=== PATIENT | female | born 1985 | race American Indian/Alaskan Native ===

== ENCOUNTER 2018-06-16 06:37 | Outpatient (CLI) | payer OTHER ==
[2018-06-16] MEDS ORDERED: LACTATED RINGERS 500 ML IV ONE (07:10)
[2018-06-16 09:45] LABS: Hematocrit 39.1 % (30.3-42.9); Hemoglobin 13.4 gm/dl (10.1-14.3); Mean Corpuscular HGB Conc 34 % (30-34); Mean Corpuscular Hemoglobin 31 pg (28-32); Mean Corpuscular Volume 89 fl (79-97); Platelet Count 246 K/mm3 (140-440); Red Blood Count 4.38 M/mm3 (3.65-5.03)
[2018-06-16 10:25] LABS: Alanine Aminotransferase 222 units/L (7-56); Uric Acid 4.4 mg/dL (3.5-7.6)
--- NOTE | 2018-06-16 10:46 | Ultrasound Report ---
FINAL REPORT EXAM: BIOPHYSICAL PROFILE WO NST HISTORY: ELEVATED BP, PREVIOUS C/S TECHNIQUE: Biophysical profile PRIORS: None currently available. FINDINGS: Single fetus is identified. heart rate: 133 BPM Breathin Gross Body Movements: 2 Tone: 2 Qualitative AFV: 2 IMPRESSION: Biophysical profile score 6/8.
--- NOTE | 2018-06-16 10:51 | Ultrasound Report ---
FINAL REPORT EXAM: OB US > = 14 WKS SNGL FETUS HISTORY: ELEVATED BP, PREVIOUS C/S TECHNIQUE: Transabdominal OB ultrasound. PRIORS: None currently available. FINDINGS: Single intrauterine dates 35.1 weeks. JOHN equals July 20, 2018. This is 4 days older compared to the LMP and is within normal limits. EFW equals 2829 g. Percentile equals 85%. BPD: 33.1 weeks. HC: 34.6 weeks. AC: 37.1 weeks. FL: 35.4 weeks. CI: 76.2 (71-87) HC/AC: 0.94 Presentation: Cephalic. Placenta: Anterior. Grade 0. No previa. heart rate: 132 BPM. Amniotic fluid index: 9.1 cm. Within normal limits. Closed cervix measures 3.7 cm. Visualized cord plexus, cisterna magnum, cerebellum, lateral ventricles, stomach, kidneys, bladder, diaphragm, four-chamber heart, three-vessel cord insertion, and portions of the spine are within normal limits. IMPRESSION: Single live intrauterine .
[2018-06-16] MEDS ORDERED: ZOFRAN IV PRN (10:55)
[2018-06-16] MEDS ORDERED: MAGNESIUM SULFATE 4GM/100ML 4 GM/100 ML BAG IV ONE (10:55)
[2018-06-16] MEDS ORDERED: NORMODYNE IV NR (10:55)
[2018-06-16] MEDS ORDERED: TYLENOL PO PRN (10:55)
[2018-06-16] MEDS ORDERED: COLACE PO PRN (11:00)
[2018-06-16] MEDS ORDERED: MAGNESIUM SULFATE 40GM/1000ML 40 GM/1,000 ML BAG IV SCH (11:00)
--- NOTE | 2018-06-16 11:10 | History and Physical Report ---
History of Present Illness Date of examination: 06/16/18 Chief complaint: Pt complains of elevated BP's History of present illness: Pt is a 32yo BF EDC 07/24/18; EGA 34 4/7 weeks presents to [facility] complaining of elevated BP's. Her BP was 167/94, but she denies headaches, blurred vision or epigatric pains. She was on a flight from [place] and transported to the hospital for evaluation. She has chronic hypertension on Aldomet and Procardia, and had a previous C Section. She also denies contractions, ROM or bleeding. records are not available. Past History Past Surgical History: section Social history: no significant social history, - Obstetrical History Expected Date of Delivery: 07/24/18 Actual Gestation: 34 Week(s) 4 Day(s) : 2 Medications and Allergies Allergies Allergy/AdvReac Type Severity Reaction Status Date / Time No Known Allergies Allergy Verified 06/16/18 07:24 Home Medications Medication Instructions Recorded Confirmed Last Taken Type Methyldopa 250 mg PO BID 06/16/18 06/16/18 06/16/18 05:00 History NIFEdipine [Nifedipine] 20 mg PO BID 06/16/18 06/16/18 06/16/18 05:00 History No Known Home Medications [No 06/16/18 06/16/18 Unknown History Reported Home Medications] Review of Systems All systems: negative - Vital Signs Vital signs: Vital Signs Pulse BP 99 H 148/92 06/16/18 07:21 06/16/18 07:21 Temp Pulse Resp BP Pulse Ox 96 H 164/95 06/16/18 10:43 06/16/18 10:43 - Physical Exam Breasts: Positive: deferred Cardiovascular: Regular rate Lungs: Positive: Clear to auscultation Abdomen: Positive: normal appearance Genitourinary (Female): Positive: normal external genitalia Uterus: Positive: enlarged - Obstetrical FHR: category 1 Uterine Contraction Monitor Mode: External Results Result Diagrams: 06/16/18 09:20 06/16/18 09:20 Abnormal lab results 06/16/18 Range/Units 09:20 Creatinine 0.4 L (0.7-1.2) mg/dL AST 412 H (5-40) units/L ALT 222 H (7-56) units/L Lactate Dehydrogenase 645 H (91-180) units/L All other labs normal. Ultrasound: report reviewed Assessment and Plan - Patient Problems (1) 34 weeks gestation of Onset Date: 06/16/18 Current Visit: Yes Status: Acute Plan to address problem: A: IUP @ 34 4/7 weeks Chronic hypertension with superimposed preeclampsia Previous C Section No care P: Admit to L&D for possible Repeat C Section Begin IV Magnesium sulfate and IV Labetolol [facility] consultation (2) Pre-eclampsia superimposed on chronic hypertension, antepartum Onset Date: 06/16/18 Current Visit: Yes Status: Acute
[2018-06-16] MEDS ORDERED: LACTATED RINGERS 1,000 ML ONE (11:12)
[2018-06-16] MEDS ORDERED: CELESTONE SOLUSPAN IM ONE (11:13)
[2018-06-16 12:14] VITALS: BP 166/87
--- NOTE | 2018-06-16 12:26 | Discharge Summary ---
Providers - Providers Date of discharge: 06/16/18 Attending physician: EDDIE CUNNINGHAM Primary care physician: EDDIE CUNNINGHAM Hospitalization Reason for admission: IUP - , observation, other (Chronic hypertension with superimposed preeclampsia) Discharge diagnosis: other (IUP @ 34 4/7 weeks; Chronic hypertension with superimposed preeclampsia; Previous C Section) Condition at discharge: Stable Disposition: [id number] ANOTHER TYPE HLTHCARE - Discharge Diagnoses (1) 34 weeks gestation of Status: Acute (2) Pre-eclampsia superimposed on chronic hypertension, antepartum Status: Acute Plan - Provider Discharge Summary Activity: routine Diet: other (NPO) Additional instructions: [] Smoking cessation referral if applicable(refer to patient education folder for contact #) [] Refer to [facility]'s [facility] Booklet Call your doctor immediately for: * Fever > 100.5 * Heavy vaginal bleeding ( >1 pad per hour) * Severe persistent headache * Shortness of breath * Reddened, hot, painful area to leg or breast * Drainage or odor from incision. * Keep incision clean and dry at all times and follow doctor's instructions regarding bathing/showering Transferred to [facility] service - spoke to Dr Smith [phone] - Follow up plan Follow up: EDDIE CUNNINGHAM MD [Primary Care Provider] - 7 Days
[2018-06-16 15:05] LABS: Bacteria,Urine 4+ /HPF (Negative); Bilirubin,Urine NEG (Negative); Blood,Urine MOD (Negative); Color,Urine Yellow (Yellow); Mucus,Urine FEW /HPF
[2018-06-16 15:07] LABS: Protein,Urine >500 mg/dL (Negative)
[2018-06-17] MEDS ORDERED: PRENATAL VITAMIN PO SCH (10:00)
== END 2018-06-16 12:40 | disposition other institution (70) ==
LOC: TRG 06:37 → LD 06:46 → TRG 06:59
PROVIDERS: ATTEND Obstetrics & Gynecology
DX: O47.03 False labor before 37 completed weeks of gestation, third trimester (principal); Z3A.34 34 weeks gestation of pregnancy
CPT/HCPCS: 36415; 76805; 76819; 81001; 82565; 83615; 84450; 84460; 84550; 85027; 86592; 86706; 86762; 87806; J0702; J3475; J7120